=== PATIENT | female | born 2005 | race Caucasian/White ===

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

== ENCOUNTER → 2023-10-02 13:56 | Outpatient (REF) | payer OTHER, SELFPAY ==
--- NOTE | 2023-10-02 14:03 | ECG_ITS ---
Test Reason : hx of palpitations Blood Pressure : / mmHG Vent. Rate : 070 BPM Atrial Rate : 070 BPM P-R Int : 118 ms QRS Dur : 090 ms QT Int : 376 ms P-R-T Axes : 055 077 046 degrees QTc Int : 406 ms Normal sinus rhythm with sinus arrhythmia Normal ECG No previous ECGs available Referred By: Marla Kebede Electronically Signed By:Jeff Marroquin
== END ==
LOC: HO.CARD 13:56
PROVIDERS: PCP Pediatrics; Visit Provider Pediatrics
DX: Z87.898 Personal history of other specified conditions (principal)
CPT/HCPCS: 93005

== ENCOUNTER → 2023-10-02 14:03 | Outpatient (BNV) | payer OTHER, SELFPAY | PROVIDERS: PCP Pediatrics; Visit Provider Internal Medicine Cardiovascular Disease | DX: R00.2 Palpitations (principal) | CPT/HCPCS: 93010 ==

== ENCOUNTER 2024-09-30 21:01 | Emergency (ER) | payer OTHER, SELFPAY ==
--- NOTE | ~2024-09-30 | XR_ITS ---
CLINICAL HISTORY: fall abrasion, pain 3 view left ankle Comparison: None Findings: Bones intact. No dislocations. No significant arthritic change or erosions. No ankle effusion. No radiopaque foreign body. IMPRESSION: 1. No acute fracture or dislocation. This document has been electronically signed by: Emily Ellis MD on 09/30/2024 22:35:24
[2024-09-30 21:11] VITALS: BP 110/78; PULSE 88; RESP 16; TEMP 36.7; O2SAT 99; BMI 31.0
[2024-10-01 00:04] VITALS: BP 120/84; PULSE 86; RESP 16; TEMP 37; O2SAT 99
--- NOTE | 2024-10-01 00:24 | ED.LOWEXIN ---
HPI - Extremity Injury (Lower) General Chief Complaint: Extremity Injury, Lower Stated Complaint: left ankle inj Time Seen by Provider: 09/30/24 23:46 Source: patient Mode of arrival: ambulatory Limitations: no limitations History of Present Illness ED Provider: PARVIN THOMPSON Narrative: 18 yo female otherwise healthy here with c/o walking down a hill twisting L ankle and landing on R knee no other injuries no headstrike. She has pain with ambulation. MD complaint: ankle injury Onset (ago): hour(s) ([employer]) Injury: Left: ankle Type of Injury: inversion Severity: moderate Relieving factors: rest Exacerbating factors: weight bearing, movement and palpation Context: fall Associated symptoms: snap/pop sensation and swelling Other symptoms: none Treatments prior to arrival: cold therapy Related Data Previous Rx's ?Medication ?Instructions ?Recorded cyclobenzaprine 10 mg tablet 10 mg PO TID PRN muscle spasm #20 10/01/24 tabs ibuprofen 600 mg tablet 600 mg PO Q6H PRN pain #30 tabs 10/01/24 Allergies Allergy/AdvReac Type Severity Reaction Status Date / Time No Known Allergies Allergy Unverified 09/30/24 21:14 [No Known Allergies*] Review of Systems Review of Systems: Constitutional : No Fever, No Chills ENT/Mouth : No Ear Pain, No Hoarseness, No sore throat Eyes: No Eye Pain, No Swelling, No Redness, No Foreign Body Cardiovascular : No Chest Pain, No SOB Respiratory : No Cough, No Dyspnea Gastrointestinal : No Nausea, No Vomiting, No Diarrhea, No abdominal Pain Genitourinary : No Dysuria, No Hematuria Musculoskeletal : positive joint pain, No Myalgias, pos Joint Swelling Skin : No Skin lacerations, No rash Neuro : No Weakness, No Numbness, No Loss of Consciousness, No Dizziness, No Headache All other systems reviewed and are negative [facility] Past Medical History Attestation statement: The following information was validated with the patient. Source: old records reviewed Medical History No known health problems Social History Social History (Updated 10/01/24 @ 00:27 by Kim Rosa DO) Patient Tobacco Use Status: Never used Tobacco Physical Exam Vital Signs: Vital Signs: Last Vital Signs Temp 98.0 F 09/30/24 21:11 Pulse 88 09/30/24 21:11 Resp 16 09/30/24 21:11 BP 110/78 09/30/24 21:11 Pulse Ox 99 09/30/24 21:11 O2 Del Method Room Air 09/30/24 21:11 BMI result Body Mass Index 31.0 Appearance: Alert. Oriented X3. No acute distress. Eyes: Pupils equal, round and reactive to light. ENT: Pharynx normal. Neck: Normal inspection. CVS: Pulses normal. Respiratory: No respiratory distress. Abdomen: atraumatic Skin: Skin warm and dry. Normal skin color. Normal skin turgor. Extremities: No lower extremity edema. R knee superficial abrasion no issues with ROM, L ankle - ttp along lateral malleolus and mild swelling distal NV intact no prox fib ttp Neuro: Oriented X 3. No motor deficit. No sensory deficit. CN2-12 intact Medical Decision Making Medical Decision Making MDM Narrative: 18 yo female with no sig PMH here with c/o L ankle pain s/p inversion injury she is otherwise NV intact and has no other injuries at this time. I am going to obtain xray. R knee has abrasion but no concern for fracture given lack of swelling and ROM intact. Differential Diagnosis Differential Diagnoses: The differential diagnosis associated with the presentation includes sprain, strain, fracture Independent Interpretation I performed an independent interpretation of an: Plain X-Ray (no fx) Radiology Impression Discussion of test interpretation with radiology: I have reviewed the radiologist's reading. Independent Historian Clinical information obtained from an independent historian. History obtained from or confirmed by: Friend Prescription Management I considered prescription management with: Pain Medication and Other Procedures Orthopedic Splinting/Casting Injury #1: Side: left Lower Extremity Injury Location: ankle Lower Extremity Immobilizer: AirCast Other Orthopedic Equipment: crutches Discharge Plan Discharge Clinical Impression: Ankle sprain and strain, Abrasion Patient Disposition: Home, Self-Care Instructions: Ankle Sprain (ED), Ankle Stirrup Splint (ED), Abrasion (ED) Additional Instructions: xray negative keep abrasion clean and dry monitor for redness, yellow drainage, swelling return for any worsening symptoms or concerns can call orthopedics if no improvement in 1 week rest ice elevate aircast x 7 days, crutches x 5 days Prescriptions: New cyclobenzaprine 10 mg tablet 10 mg PO TID PRN (Reason: muscle spasm) Qty: 20 0RF ibuprofen 600 mg tablet 600 mg PO Q6H PRN (Reason: pain) Qty: 30 0RF Stand Alone Forms: Work/School Release Print Language: Bahraini
[2024-10-01 00:50] VITALS: BP 120/84; PULSE 86; RESP 16; TEMP 37; O2SAT 99
== END 2024-10-01 00:51 | disposition home or self-care (01) ==
PROVIDERS: Emergency Provider Emergency Medicine; PCP Pediatrics
DX: S93.402A Sprain of unspecified ligament of left ankle, initial encounter (principal); S80.211A Abrasion, right knee, initial encounter; X50.1XXA Overexertion from prolonged static or awkward postures, initial encounter; Y93.01 Activity, walking, marching and hiking; Y92.828 Other wilderness area as the place of occurrence of the external cause; Y99.8 Other external cause status
CPT/HCPCS: 73610; 99283; 99284

== ENCOUNTER → 2024-09-30 21:55 | Outpatient (BNV) | payer OTHER, SELFPAY | PROVIDERS: Visit Provider Radiology Diagnostic Radiology | DX: M25.572 Pain in left ankle and joints of left foot (principal) | CPT/HCPCS: 73610 ==

== ENCOUNTER 2025-01-18 12:51 | Emergency (ER) | payer OTHER, SELFPAY ==
--- NOTE | ~2025-01-18 | XR_ITS ---
CLINICAL HISTORY: cough x 2 months 2 view chest x-ray Comparison: None provided Findings: The lungs are clear. Heart size is normal. No acute fracture. IMPRESSION: 1. No acute findings. This document has been electronically signed by: Cam Erwin MD on 01/18/2025 14:11:05
[2025-01-18 12:52] VITALS: BP 125/96; PULSE 98; RESP 18; TEMP 37; O2SAT 99; BMI 27.7
--- NOTE | 2025-01-18 12:53 | ED_ITS ---
HPI - URI/Sore Throat General Chief Complaint: Upper Respiratory Symptoms Stated Complaint: cough Time Seen by Provider: 01/18/25 14:26 Source: patient Mode of arrival: ambulatory Limitations: no limitations History of Present Illness ED Provider: Steffany Castro PA-C HPI Narrative: Patient seen by myself via RME at first. See course details. Additional information: She denies any fevers, chills, sweats, sob, abd pain, n/v/d. NO travel or rashes. Potentially has seasonal allergies untreated. She is tolerating PO fluids and voiding regularly. Related Data Previous Rx's ?Medication ?Instructions ?Recorded cyclobenzaprine 10 mg tablet 10 mg PO TID PRN muscle s pasm #20 10/01/24 tabs ibuprofen 600 mg tablet 600 mg PO Q6H PRN pain #30 t abs 10/01/24 ipratropium bromide 21 mcg (0.03 2 spray intranasal BI D #30 mL 01/18/25 %) nasal spray Allergies Allergy/AdvReac Type Severity Reaction Status Date / Time No Known Allergies (No Known Allergy Unverified 01/18/25 12:56 Allergies*) Review of Systems Review of Systems: Yes all other systems are reviewed and are negative PMFSH Past Medical History Attestation statement: The following information was validated with the patient. Medical History No known health problems Social History Social History Patient Tobacco Use Status: Never used Tobacco Advance Directives: No Advance Directives Information Provided: Yes Physical Exam Vital Signs: Vital Signs: Last Vital Signs Temp 98.6 F 01/18/25 15:22 Pulse 85 01/18/25 15:22 Resp 18 01/18/25 15:22 BP 125/69 01/18/25 15:22 Pulse Ox 100 01/18/25 15:22 O2 Del Method Room Air 01/18/25 15:22 BMI result Body Mass Index 27.7 General: Appears in no acute distress, appears well nourished body habitus is normal, appears stated age. No septic or ill-appearing. Vitals reviewed normal, PMH/Social and Surgical hx reviewed including allergies and current medications. Head: Normocephalic, no obvious trauma or skin lesions noted. Eyes: EOMI ENMT: moist oral mucosa, uvula midline no trismus, no stridor, nasal turbinates boggy, no erythema, TMs and canal clear, clear PND noted Neck: trachea midline, no lymphadenopathy Cardiovascular: peripheral perfusion normal, Regular heart rate, regular rhythm Respiratory: no respiratory distress, lungs CTAB, no accessory muscle use Abdomen: nondistended, soft Extremities: warm and well profused, moving without difficulty. Psych: Cooperative Neuro: Alert and oriented. Course Course Course Narrative: This is a RME preformed in triage by Steffany Castro PA-C. Date: 01/18/2025, time 12:53 pm. Patient presents with cough x 2 months, productive. Saw pedicatrician, was given inhaler, had negative CXR few weeks ago via PCP. Was still given zpac, prednisone- made no change. Worst at night. Lungs clear, but has b/l chronic serous OM. Not sick or ill appearing, hydrated. Inhaler helps sometimes. No travel or rashes no fevers or chills chronic nasal congestion over the same amount of time. She has done OTC cough medicine in the beginning. No sick contacts at home tolerating p.o. fluids voiding more importantly Work UP: CXR Will defer full ROS and PE to treating provider. Patient will continued to be monitored in the interim. Medical Decision Making Medical Decision Making [facility] Narrative: 19-year-old female here today for evaluation of a cough that she has had intermittently over the past 2 months. Upon arrival to ED she is afebrile and well-appearing. She was noted to have bilateral serous effusions on exam but clear lungs. A chest x-ray was ordered in as she does not appear septic or toxic and given the chronicity of symptoms no further workup was indicated today. Chest x-ray is unremarkable. No posttussive emesis concerning for pertussis however she was already given a Z-Cole with no change as well as prednisone with no change. She is not hypoxic this is not asthma exacerbation. Presentation is most likely see environmental allergens causing the chronic ear effusions leading to postnasal drip and irritative cough. We will advise the use of antihistamines daily and following up with her primary care provider for further surveillance. She was given ED precautions patient demonstrated verbal understanding of the plan and agreed she was discharged home stable Differential Diagnosis Differential Diagnoses: The differential diagnosis associated with the presentation includes Admission/Observation Consideration of admission/observation: Escalation of care including admission/observation considered Patient would have been admitted to the hospital had [his/her/their] work up had any findings where hospital admission was appropriate and [his/her/their] clinical presentation warranted hospital admission. Independent Interpretation I performed an independent interpretation of an: Plain X-Ray Interpretation: No infiltrate no mass Radiology Impression Discussion of test interpretation with radiology: I have reviewed the radiologist's reading. Radiologist Impression: No acute cardiopulmonary disease Tests considered The following testing was considered but not selected: considered viral panel but sxs not acute and would not tire changer aircraft Prescription Management Would have considered antibiotic had patient has no any evidence for bacterial etiology of her symptoms Discharge Plan Discharge Clinical Impression: Chronic cough, Chronic serous OM (otitis media), Chronic vasomotor rhinitis Patient Disposition: Home, Self-Care Instructions: Fluid In The Ear (Serous Otitis Media) (ED), Postnasal Drip (DC) Additional Instructions: You were seen in the emergency department today for cough has been lasting for 2 weeks he already treated with steroids and antibiotics as well as inhaler without any improvement. On physical exam your noted to have bilateral ear effusions which is likely leading to your postnasal drip and cough. Her lungs are clear to auscultation bilaterally but a chest x-ray was ordered just in case which was normal. There is also no evidence of middle or external ear infection strep throat tonsillitis or bronchitis. No pneumonia on x-ray. Serous Otitis Media is NOT an ear infection, instead, it is a build up of fluid behind your ear drum that causes sensation of pressure/blockage and at times can cause dizziness, crackling/popping sounds, and discomfort.? Fluid behind ear drums is a common condition associated with Allergies, Viral upper respiratory infections, sinus inflammation, and many other upper respiratory conditions.? This condition will typically resolve on its own within several days but may take up to 4-6 weeks. Infections may occur during this time as the fluid may develop bacterial growth. It is NOT appropriate to treat fluid behind ear drums with antibiotics without clear signs of infection.? There is no specific treatment for the fluid itself that is stuck behind ear drums and no bacterial infection.? Common things to try to relieve fluid from middle ear are: Decongestant medications, Antihistamines with decongestants (Zyrtec-D twice daily for 5 days), sour hard candies(war heads/lemon drops), Flonase, pinching nose and gently trying to blow out your nose.? Be sure to drink plenty of fluids and electrolytes, especially if taking over the counter meds. Significant sedation and impairment of performance (eg, fine motor skills, driving skills, and reaction times) occur in more than 20 percent of patients. Anticholinergic side effects include dry mouth, diplopia, blurred vision, urinary retention, or vaginal dryness. This is most prominent in Benadryl. Benadryl (Diphenhydramine): Adults and Children 12 years and older: 25 to 50 mg every 4 to 6 hours as needed. Cetirizine (Zyrtec): Adults and Children 12 years and older: 10 to 20 mg twice daily as needed Claritin (loratidine) Adults and children 6 years and older: 10 -20 mg once daily as needed ( twice daily in adults if needed) Yeny (fexofedadine) Adults and Children ages 12 and older: 180 mg daily as needed (adults may be twice a day) Prescriptions: New ipratropium bromide 21 mcg (0.03 %) spray,non-aerosol 2 spray intranasal BID Qty: 30 0RF Rx Instructions: administer into each nostril No Action cyclobenzaprine 10 mg tablet 10 mg PO TID PRN (Reason: muscle spasm) Qty: 20 0RF ibuprofen 600 mg tablet 600 mg PO Q6H PRN (Reason: pain) Qty: 30 0RF Referrals: [facility] [place]Provider Group, Pulmonology] Referral Note: chronic cough Interventions: ED Discharge Assessment Last Done: 01/18/25 15:22 Discharge Date/Time: 01/18/25 15:23 Print Language: Irish
[2025-01-18 15:00] VITALS: BP 125/69; PULSE 85; RESP 18; TEMP 37; O2SAT 100
[2025-01-18 15:22] VITALS: BP 125/69; PULSE 85; RESP 18; TEMP 37; O2SAT 100
== END 2025-01-18 15:23 | disposition home or self-care (01) ==
LOC: HO.ED 15:16
PROVIDERS: Emergency Provider Emergency Medicine
DX: R05.9 Cough, unspecified (principal); H65.20 Chronic serous otitis media, unspecified ear; J30.0 Vasomotor rhinitis
CPT/HCPCS: 71046; 99282; 99283

== ENCOUNTER → 2025-01-18 12:59 | Outpatient (BNV) | payer OTHER, SELFPAY | PROVIDERS: Emergency Provider Emergency Medicine; Visit Provider Radiology Diagnostic Radiology | DX: R05.9 Cough, unspecified (principal) | CPT/HCPCS: 71046 ==

== ENCOUNTER 2025-03-21 15:31 | Outpatient (AMB) | payer OTHER, SELFPAY ==
[2025-03-21 15:33] VITALS: BP 100/72; PULSE 73; O2SAT 98; BMI 27.7
--- NOTE | 2025-03-21 15:33 | MHC.OFFVIS ---
Vital Signs 03/21/25 15:33 Height 5 ft 6 in Weight 171 lb 8 oz BMI 27.7 BP 100/72 Blood Pressure Location Lt brachial Position Sitting Pulse 73 Pulse Source Pulse Oximeter Pulse Oximetry (%) 98 Oxygen Delivery Method Room Air Intake Visit Reasons: Cough Allergies No Known Allergies (No Known Allergies*) Allergy (Unverified 03/21/25 15:36) HPI HPI Cough: Details: Renzo is a pleasant 19-year-old female, never smoker, with no significant past medical history. She was referred by PCP for persistent cough and question of asthma. Patient presenting with a persistent cough with green mucus production and associated respiratory symptoms. The cough began at the end of November and has been accompanied by dyspnea and chest tightness. The patient reports that the mucus is green, and she has experienced nasal congestion and occasional wheezing.She reports anosmia and ageusia, which have persisted despite negative COVID-19 tests. The patient has tried various treatments, including azithromycin, steroids, and [id number] cough medications, without significant improvement. A chest x-ray was performed, which did not reveal any abnormalities. The patient has a family history of asthma but has not been diagnosed with it herself. The patient has been to the emergency room multiple times over the past three years for respiratory issues, including recent visits to the ER in [place] and [place]. She has been prescribed albuterol, which she feels exacerbates her symptoms. The patient has also been exposed to potential allergens, including three Huskies at home and cleaning chemicals at work, working as a MA. [facility] Medical History No known health problems Social History Patient Tobacco Use Status: Never used Tobacco Review of Systems Const Denies chills, Denies excessive sweating, Denies fever(s), Denies headache(s) and Denies night sweats Eyes Denies dry eyes, Denies irritation and Denies itchy eyes ENT Reports Normal hearing present, Denies headache(s), Denies post nasal drip and Denies sore throat Card Denies chest pain, Denies chest pain at rest, Denies chest pain with activity, Denies claudication, Denies leg edema, Denies orthopnea and Denies paroxysmal nocturnal dyspnea Resp Denies pain on inspiration, Denies pain with cough and Denies stridor Musc Denies myalgias Neuro Reports Normal hearing present and Denies headache(s) Endo Denies excessive sweating Latrell/Lymph Denies lymphadenopathy Aller/Immun Denies itchy eyes and Denies seasonal rhinorrhea Physical Exam Vital Signs: Last Vital Signs Pulse 73 03/21/25 15:33 BP 100/72 03/21/25 15:33 Pulse Ox 98 03/21/25 15:33 Oxygen Delivery Method Room Air 03/21/25 15:33 BMI result Body Mass Index 27.7 Const General: cooperative, healthy appearing, comfortable, no acute distress, well developed and alert Orientation/consciousness: patient oriented x3 Limitations: no limitations HEENT Head: Yes normal to inspection, Yes normocephalic and Yes atraumatic Ears: hearing grossly normal bilaterally and external ears normal Eyes General: appearance normal, both eyes and all related structures Eyelids: Yes eyelids normal Sclerae: sclerae normal EOM: EOMs intact bilaterally Neck Neck: Yes normal visual inspection and Yes no lymphadenopathy Lymphatic: no lymphadenopathy noted Chest Chest palpation & inspection: normal inspection of the chest Resp Effort & Inspection: normal respiratory effort, able to speak in complete sentences, no audible wheezes, no stridor, not tachypneic, no tripod positioning and no use of accessory muscles Auscultation: rhonchi and wheezes Cardio Jugular venous distension: no JVD Rate: regular rate Rhythm: regular rhythm Skin Other: warm, dry General skin exam: no rashes or lesions noted Neuro General: patient oriented x3 Cranial nerves: Yes Normal hearing present Cognition (Neuro): normal cognition Gait exam (Neuro): Normal gait present Extrem General: Yes normal to inspection, Yes capillary refill normal, Yes no clubbing, cyanosis or edema and Yes no pedal edema Psych Appearance: grossly normal and well kempt Speech and movement: Normal speech and movement present and Clear speech present Affect: normal affect Attitude: cooperative Thought process: Normal thought process present Thought content: Normal thought content present Insight: Good insight present (Psych) Judgement: Good judgement present (Psych) Assessment & Plan Assessment & Plan (1) Cough: Code(s): R05.9 - Cough, unspecified Category: Medical (2) Dyspnea: Code(s): R06.00 - Dyspnea, unspecified Category: Medical (3) Environmental allergies: Code(s): Z91.09 - Other allergy status, other than to drugs and biological substances Category: Medical Plan Renzo presents with chronic cough that has not responded to azithromycin and prednisone. Side effects reviewed. She continues with productive cough with green sputum and significant rhonchi and wheezing on exam. Will treat bronchitic symptoms with Augmentin and Prednisone. She is aware to call if symptoms do not improve. Will send for PFT evaluate for asthma and discussed the possibility of a CT scan if symptoms persist. Advised the patient to try Zyrtec for nasal congestion and will send for RAST to assess for an allergic component. All questions were answered and patient is in agreement of plan. Will follow up in 4 weeks or sooner if needed. Orders: Orders PFT pulmonary function test Today R05.9 - Cough, unspecified, R06.00 - Dyspnea, unspecified Resp Allergy Profile Region I 03/21/25 Z91.09 - Other allergy status, other than to drugs and biological substances Immunoglobulin E 03/21/25 Z91.09 - Other allergy status, other than to drugs and biological substances Complete Blood Count Auto Diff 03/21/25 Z91.09 - Other allergy status, other than to drugs and biological substances Medications: New prednisone 20 mg x 5 days followed by 10 mg x 5 days 10 mg PO DIRECTED 15 tabs 0RF amoxicillin-pot clavulanate 875-125 mg 1 tab PO Q12H 20 tabs 0RF Discontinued cyclobenzaprine Discontinued Reason: Patient Completed Course 10 mg PO TID PRN 20 tabs 0RF muscle spasm ibuprofen Discontinued Reason: Patient Completed Course 600 mg PO Q6H PRN 30 tabs 0RF pain ipratropium bromide administer into each nostril Discontinued Reason: Patient Completed Course 2 sprays intranasal BID 30 mL 0RF Coding Level of Care Code New Pt Level 4 (88895) Diagnoses Cough R05.9 Dyspnea R06.00 Environmental allergies Z91.09
--- OUTSIDE RECORDS SUMMARY | 2025-03-21 17:42 | XMS_ITS | Clinical Summary ---
Author Organization [facility] Address [address] [place] [address] Phone Care Team Providers Care Lockstitch Machine Operator Name Role Phone Unavailable Primary Care Provider Unavailabl e Allergies No known active allergies Medications Ventolin HFA 108 (90 Base) MCG/ACT inhaler INHALE 1 PUFF 4 TIMES A DAY 12/20/2024 Active ergocalciferol 1.25 MG (23372 UT) capsuleIndicati ons:Vitamin D deficiency Take 1 capsule (1.25 mg total) by mouth once a week. 12 capsule 01/02/2025 Active Active Problems Problem Noted Date Diagnosed Date Omphalitis 10/17/2023 Assessment & Plan (10/17/2023 2:50 PM EDT): Topical antibiotic mupirocin apply with q-tip TID for 5 days If not improving or if better but then worsens let us know Supportive care reviewed Refused influenza vaccine 03/17/2021 Overview (06/17/2021): 03/17/2021, 06/17/2021 Assessment & Plan (06/17/2021 2:37 PM EST): Strongly encouraged the influenza vaccine to help prevent influenza personally, & in the community, especially in light of concurrent coronavirus pandemic Family/patient still declined today They will call if they decide to get it Assessment & Plan (03/17/2021 2:19 PM EDT): Strongly encouraged the influenza vaccine to help prevent influenza personally, & in the community, especially in light of concurrent coronavirus pandemic Family/patient still declined today They will call if they decide to get it Myopia of both eyes 02/20/2014 Overview (03/10/2020): Persistant pupillary membrane & Myopia. Dr Angel - glasses. Mom says Dr Angel told family that Pt will need surgery at 20 years of age. 03/2020: patient says [facility] told her she does not need surgery But can get it if she wants Assessment & Plan (06/17/2021 2:03 PM EST): Has contacts. Sees eye doctor regularly Assessment & Plan (03/10/2020 3:38 PM EDT): Seen last month. Got new contacts Assessment & Plan (04/11/2017 5:14 PM EDT): Followed by Dr Angel. 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 Renzo struggles in school. Gave info on school advocate Resolved Problems Problem Noted Date Diagnosed Date Resolved Date Personal history of COVID-19 06/25/2021 10/17/2023 Overview (06/25/2021): Tested positive 06/23/21, mild symptoms. Disruptive behavior 03/12/2015 03/10/20 20 Overview (10/09/2017): Refuses to see therapist Assessment & Plan (03/10/2020 3:30 PM EDT): No further issues at school Does not want to see therapist Assessment & Plan (04/11/2017 5:13 PM EDT): So far doing better this year but struggled last year. Renzo refuses to see therapist Precocious sexual development 02/17/2014 08/02/2018 Overview (10/09/2017): Bone age normal 2012. DHEAS, 17-OHP, Testosterone normal 2012. Sister's Menarche at 8 years of age Bone age normal 2012. DHEAS, 17-OHP, Testosterone normal 2012. Sister's Menarche at 8 years of age Encounters Date Type Department Care Team Description 01/09/2025 Telephone [facility] [address] [place] [address] Terra Coffey MD 19 Letter 01/02/2025 Results Follow-Up [facility] [address] [place] [address] Esther Carpenter NP 01/01/2025 3:30 PM EDT Office Visit [address] [address] Esther Carpenter NP Well adult exam (Primary Dx); Encounter for screening examination for sexually transmitted disease; BMI 31.0-31.9,adult; Dietary counseling and surveillance; Exercise counseling; Chronic cough; Screening for iron deficiency anemia; Screening cholesterol level from Last 3 Months Immunizations Immunization Administration Dates Next Due DTaP / Hep B / IPV 05/26/2004,03/30/2004 DTaP 5 12/05/2007,05/31/2005,01/27/2004 H1N1 06/16/2009 HPV Vaccine 9 Valent 03/21/2016,03/12/2015 Hep A, ped/adol 02/17/2014,02/16/2011 Hep B, ped/adol 2003 Hib (HbOC) 03/01/2005, 4,03/30/2004,01/26 IPV 12/05/2007,01/27/2004 Influenza, injectable, quadr ivalent, preservative free 05/26/2020,08/02/2018,04/11/2017,03/21,03/12/2015 Influenza, injectable, trivalent 07/25/2006,06/09/2006 MMR 12/05/2007,2004 Meningococcal Conj (Menactra) MCV4P 05/26/2020,0 03/12/2015 PPD Test 10/18/2023 Pneumococcal Conjugate 03/01/2005,2003,03/30/2004,01/26 Tdap 03/12/2015 Varicella 12/05/2007,2004 Family History Medical History Relation Name Comments ADD / ADHD Brother 1 Easton Dumont No Known Problems Brother 2 Andrew Dumont Diabetes Father Reuben Dumont ADD / ADHD Mother Zara St Asthma Mother Zara St Depression Mother Zara St Hypertension Mother Zara St Relation Name Status Comments Brother 1 Easton Dumont Alive Brother 2 Andrew Dumont Alive Father Reuben Dumont Alive Maternal Grandfather Materna l grandfather: Diabetes mellitus Maternal Grandmother Materna l aunt: Diabetes mellitus, Asthma Mother Z[address] St Alive Other Family history of Deafness, No family history of Thrombophilia, Family history of Hyperlipidemia, Family history of Hyperlipidemia, No family history of ADD/ADHD, No family history of Dental caries, No family history of CVA (Stroke), Family history of Diabetes mellitus, Family history of Hypertension Sister Ivana Dumont Alive Social History Tobacco Use Types Packs/Day Years Used Date Smoking Tobacco: Never Smokeless Tobacco: Current Tobacco Cessation:Ready to Q uit: No; Counseling Given: Yes Alcohol Use Standard Drinks/Week Comments Yes 0 (1 standard drink = 0.6 oz pur e alcohol) Rare alcohol use; socially. Hunger/Food Answer Date Recorded In the last 12 months, did y ou or your family ever eat less than you felt you should because there wasn't enough money for food? No 09/28/2023 Stable Housing Answer Date Recorded Are you worried that in the next 2 months you may not have stable housing? No 09/28/2023 Transportation Concerns Answer Date Rec orded In the last 12 months, have you or your family ever had to go without healthcare because you didn't have a way to get there? No 09/28/2023 Hazards in Home Answer Date Recorded Think about the place you li ve. Do you have problems with any of the following? Pests (mice or roaches), mold, no/not working smoke detectors, water leaks, no window guards. No 2023 Financing Utilities Answer Date Recorde d In the last 12 months, has t he electric, gas, oil, or water company threatened to shut off your services in your home? No 09/28/2023 Safety at Home Answer Date Recorded Are you or your family worried about feeling saf e in your home? No 09/28/2023 Outside Support Answer Date Recorded Do you feel that you need mo re support from other people or programs to help you care for yourself or your family? No 09/28/2023 Understanding Health Concerns Answer Da te Recorded Do you need help understandi ng your or your child's healthcare needs (diagnosis, medications, plan, etc.)? No 09/28/2023 Financing Health Concerns Answer Date R ecorded In the last 12 months, was t here a time when your child needed to see a doctor or get medications or supplies but could not because of cost? No 09/28/2023 Missing School or Work Answer Date Ace rded Did you or your child miss s chool or work because of a health problem that could have been avoided? No 09/28/2023 Comments No Sex and Gender Information Value Date Recorded Sex Assigned at Not on file Legal Sex Female 5:02 PM EDT Gender Identity Female 03/10/2020 9:49 AM EDT Sexual Orientation Straight 06/17/2021 2: 39 PM EST Last Filed Vital Signs Vital Sign Reading Time Taken Comments Blood Pressure 104/62 01/01/2025 3:36 PM EDT Pulse 84 01/01/2025 3:36 PM EDT Temperature 36.8 C (98.2 F) 09/13/2024 3:16 PM EST Respiratory Rate - - Oxygen Saturation - - Inhaled Oxygen Concentration - - Weight 78.6 kg (173 lb 3.2 oz) 01/01/2025 3:36 P M EDT Height 159 cm (5' 2.6 ) 01/01/2025 3:36 PM EDT Body Mass Index 31.08 01/01/2025 3:36 PM EDT Plan of Treatment Health Maintenance Due Date Last Done Comments Men B Vaccine (1 of 2 - Standard) 2019 Influenza Vaccines (#1) 2025 05/26/20 20, 08/02/2018, 04/11/2017, Additional history exists COVID-19 Vaccine (1 - 2023-2 5 season) 2025 DTaP,Tdap,and Td Vaccines (7 - Td or Tdap) 03/12/2025 03/12/2015, 12/05/2007, 05/31/2005, Additional history exists Hepatitis B Vaccines Completed 05/26/2004, 03/30/2004, 2003 HIB Vaccines Completed 03/01/2005, 05/10, 03/30/2004, Additional history exists Pneumococcal Vaccine Completed 03/01/2005, 05/26/2004, 03/30/2004, Additional history exists IPV Vaccines Completed 12/05/2007, 05/10, 03/30/2004, Additional history exists MMR Vaccines Completed 12/05/2007, 2004 Varicella Vaccines Completed 12/05/2007, 2004 Hepatitis A Vaccines Completed 02/17/2014, 02/17/20 11 HPV Vaccines Completed 03/21/2016, 03/12/2015 Meningococcal Vaccine Completed 05/26/2020, 015 Procedures * Due to [place] state law, this organization might not be sharing sensitive test results. Procedure Name Priority Date/Time Associated Diagnosis Comments XR CHEST 2 VW Routine 01/01/2025 5:53 PM EDT Chronic cough CHLAMYDIA AND GONORRHEA, AMPLIFIED Routine 01/01/2025 4:21 PM EDT Encounter for screening examination for sexually transmitted disease VITAMIN D 25 OH TOTAL Routine 01/01/2025 4:19 PM EDT BMI 31.0-31.9,adult CBC Routine 01/01/2025 4:19 PM EDT Screening for iron deficiency anemia HEMOGLOBIN A1C Routine 01/01/2025 4:19 PM EDT BMI 31.0-31.9,adult NON-HDL CHOLESTEROL NON-FASTING PROFILE Routine 01/01/2025 4:19 PM EDT Screening cholesterol level BRIEF BEHAVIORAL ASSESSMENT - NORMAL(PSC,PHQ9,VAND ERBILT,ETC) Routine 01/01/2025 3:40 PM EDT Well adult exam from Last 3 Months Results * Due to [place] state law, this organization might not be sharing sensitive test results. * X-ray chest 2 views (01/01/2025 5:53 PM EDT) Anatomical Region Laterality Modality Body Radiographic Jennifer ging 01/01/2025 5:53 PM EDT Narrative 01/02/2025 7:38 AM EDT PA and lateral chest dated January 01, 2025. No prior studies are available. HISTORY: Pain. FINDINGS: The cardiac silhouette is within normal limits for size. Hilar and mediastinal structures are unremarkable. No airspace infiltrate or pleural effusion is identified. Visualized osseous structures are unremarkable. IMPRESSION: No evidence of acute pulmonary disease. Examination [address]. Thank you for allowing me to participate in the care of this patient. WSN: [id number] Ordering Physician: Esther Carpenter Dictated By: Mando Ruby MD Dictated Date/Time: 01/02/25 7:38 am Reviewed By: Mando Ruby MD Signed By: Mando Ruby MD Signed Date/Time: 01/02/25 7:38 am Transcribed By: JACKIE Transcribed Date/Time: 01/02/25 7:38 am Esther Carpenter CLINIC SPECIALIST IMG XR PROCEDURES Final Result * Chlamydia and Gonorrhoea, Amplified (Urine) (01/01/2025 4:21 PM EDT) C trach LILLIAN Negative Negative [facility] N gonorrhoeae LILLIAN Negative Negative [facility] Urine (Urine, Random (not clean void)) 01/01/2025 4:21 PM EDT 01/01/2025 Comment:UR Narrative [facility] - 01/02/2025 5:05 PM EDT Performed at: - [facility] [address], [address], [place], [place] [id number] Handyperson: Preston Enamorado MD, Phone: [phone] Esther Carpenter NP LAB MICROBIOLOGY - GENERAL ORD ERABLES Final Result Performing Organization Address [facility] de Phone Number [facility] [address] [place] [address] * Non-HDL Cholesterol Non-Fasting Profile (01/01/2025 4:19 PM EDT) [facility] Cholesterol, Total 142 100 - 199 mg/dL [facility] HDL 57 >39 mg/dL [facility] Non-HDL Cholesterol 85 0 - 129 mg/dL [facility] Comments Comment [facility] Comment: If patient is <20 years old, or no age was provided, Familial Hypercholesterolemia should be suspected when fasting LDL cholesterol is above 159 mg/dL or non-HDL cholesterol is above 189 mg/dL. If patient is 20 years or greater, Familial Hypercholesterolemia should be suspected when fasting LDL cholesterol is above 189 mg/dL or non-HDL cholesterol is above 219 mg/dL. A family history of high cholesterol and heart disease in 1st degree relatives should be collected. J Clin Lipidol 2011;5:133-140. 01/01/2025 4:19 PM EDT 01/01/2025 Narrative [facility] - 01/02/2025 4:05 AM EDT Performed at: - [facility] [id number] Handyperson: Marleni Hutson MD, Phone: [phone] Performed at: - [facility] [address], [address], [place] [id number] Handyperson: Preston Enamorado MD, Phone: [phone] Esther Carpenter NP LAB BLOOD ORDERABLES Final Res ult Performing Organization Address [facility] Co de Phone Number [facility] [address] [place] [address] * (ABNORMAL) Vitamin D 25 OH Total (01/01/2025 4:19 PM EDT) Vitamin D, 25-Hydroxy 16.1(L) 30.0 - 100.0 ng/mL [facility] Comment: Vitamin D deficiency has been defined by the [place] of Medicine and an Endocrine Society practice guideline as a level of serum 25-OH vitamin D less than 20 ng/mL (1,2). The Endocrine Society went on to further define vitamin D insufficiency as a level between 21 and 29 ng/mL (2). 1. IOM ([place] of Medicine). 2010. Dietary reference intakes for calcium and D. [place]: The National Academies Press. 2. Mike MF, Alona SANTO, Chilango AN, et al. Evaluation, treatment, and prevention of vitamin D deficiency: an Endocrine Society clinical practice guideline. JCEM. 2010; 96(7):1911-30. Blood 01/01/2025 4:19 PM EDT 01/01/2025 Narrative [facility] - 01/02/2025 5:05 AM EDT Performed at: 01 - [facility] [id number] Handyperson: Marleni Hutson MD, Phone: [phone] Esther Carpenter NP LAB BLOOD ORDERABLES Final Res ult Performing Organization Address City/State/[facility] Co de Phone Number [facility] [address] [place] [address] * (ABNORMAL) CBC (01/01/2025 4:19 PM EDT) WBC 11.2(H) 3.4 - 10.8 x10E3/uL [facility] RBC 4.68 3.77 - 5.28 x10E6/uL [facility] HGB 13.5 11.1 - 15.9 g/dL [facility] HCT 42.3 34.0 - 46.6 % [facility] MCV 90 79 - 97 fL [facility] MCH 28.8 26.6 - 33.0 pg [facility] MCHC 31.9 31.5 - 35.7 g/dL [facility] RDW 13.1 11.7 - 15.4 % [facility] Platelets in Blood, Automated Count 249 150 - 450 x10E3/uL [facility] Blood 01/01/2025 4:19 PM EDT 01/01/2025 Narrative [facility] - 01/02/2025 8:06 AM EDT Performed at: [facility] [id number] Handyperson: Marleni Hutson MD, Phone: [phone] Esther Carpenter NP LAB BLOOD ORDERABLES Final Res ult Performing Organization Address [facility] Co de Phone Number [facility] [address] [place] [address] * Hemoglobin A1c (01/01/2025 4:19 PM EDT) [facility] Hemoglobin A1C 5.3 4.8 - 5.6 % [facility] Comment: Prediabetes: 5.7 - 6.4 Diabetes: >6.4 Glycemic control for adults with diabetes: <7.0 Blood 01/01/2025 4:19 PM EDT 01/01/2025 Narrative [facility] - 01/02/2025 8:06 AM EDT Performed at: [facility] [id number] Handyperson: Marleni Hutson MD, Phone: [phone] Esther Carpenter NP LAB BLOOD ORDERABLES Final Res ult Performing Organization Address City/[facility]/ZIP Co de Phone Number [facility] [address] [place] [address] from Last 3 Months
--- OUTSIDE RECORDS SUMMARY | 2025-03-21 17:42 | XMS_ITS | Encounter Summary ---
Author Organization [facility] Address [address] [place] [address] Phone Care Team Providers Care Client Integration Manager Name Role Phone Provider, Phillip SANCHES Primary Care Provider [phone] Encounter Details Date Type Department Care Team (Late st Contact Info) Description 01/25/2013 Documentation [facility] Family Medicine [address] [place] [address] Family Medicine, Physician [address] [place], [place] [id number] Social History Tobacco Use Types Packs/Day Years Used Date Smoking Tobacco: Never Assessed Comments Unknown Sex and Gender Information Value Date Recorded Sex Assigned at Not on file Legal Sex Female 5:02 PM EDT Gender Identity Female 03/10/2020 9:49 AM EDT Sexual Orientation Straight 06/17/2021 2: 39 PM EST documented as of this encounter Plan of Treatment Not on file documented as of this encounter Visit Diagnoses Not on filedocumented in this encounter Care Teams Client Integration Manager Relationship Specialty Start Date End Date Provider, MD Phillip [address] [place] [phone] PCP - General Pediatrics 01/09/25 01/22/25 documented as of this encounter
--- OUTSIDE RECORDS SUMMARY | 2025-03-21 17:42 | XMS_ITS | Encounter Summary ---
Author Organization [facility] Address [address] [place] [address] Phone Care Team Providers Care Bench Grinder Name Role Phone Provider, Phillip SANCHES Primary Care Provider [phone] Encounter Details Date Type Department Care Team (Late st Contact Info) Description 02/23/2017 Conversion Encounter [facility] [address] [place] [address] Social History Tobacco Use Types Packs/Day Years [...] on filedocumented in this encounter Care Teams Bench Grinder Relationship Specialty Start Date End Date Provider, MD Phillip [address] [place] [id number] PCP - General Pediatrics 01/09/25 01/22/25 documented as of this encounter
--- OUTSIDE RECORDS SUMMARY | 2025-03-21 17:42 | XMS_ITS | Encounter Summary ---
Author Organization [facility] Address [address] [place] [address] Phone Care Team Providers Care Geospatial Developer Name Role Phone Provider, Phillip SANCHES Primary Care Provider [phone] Encounter Details Date Type Department Care Team (Late st Contact Info) Description 11/27/2009 Documentation [facility] [place] [address] [place] [address] Family Medicine, Physician [address] [place] [phone] Social History Tobacco Use Types Packs/Day Years [...] on filedocumented in this encounter Care Teams Geospatial Developer Relationship Specialty Start Date End Date Provider, MD Phillip [address] [place] [phone] PCP - General Pediatrics 01/09/25 01/22/25 documented as of this encounter
== END 2025-03-21 16:03 | disposition home or self-care (01) ==
LOC: HO.HPSW 15:32
PROVIDERS: PCP Nurse Practitioner Pediatrics; Referring Provider Physician Assistant Medical; Visit Provider Nurse Practitioner Family
DX: R05.9 Cough, unspecified (principal); R06.00 Dyspnea, unspecified; Z91.09 Other allergy status, other than to drugs and biological substances
CPT/HCPCS: 99204

== ENCOUNTER → 2025-03-21 15:31 | Outpatient (BNVA) | payer OTHER, SELFPAY | PROVIDERS: PCP Nurse Practitioner Pediatrics; Referring Provider Physician Assistant Medical; Visit Provider Nurse Practitioner Family | DX: R05.9 Cough, unspecified (principal); R06.00 Dyspnea, unspecified; Z91.09 Other allergy status, other than to drugs and biological substances | CPT/HCPCS: 99202 ==

== ENCOUNTER 2025-03-24 09:03 | Outpatient (REF) | payer OTHER, SELFPAY ==
[2025-03-24 09:14] LABS: MANUAL DIFF FLAG NO
[2025-03-24 09:41] LABS: Hematocrit 41.3 % (37.0-47.0); Hemoglobin 13.8 g/dl (12.0-16.0); Imm Gran Abs Auto 0.03 X10*3/uL (0.00-0.03); Imm Gran Pct Auto 0.3 % (0.0-0.4); Lymphocytes Absolute Auto 1.6 X10*3/uL (1.2-4.9); Mean Corpuscular HGB Conc 33.4 g/dl (31.0-35.0); Mean Corpuscular Hemoglobin 28.4 pg (27.0-33.0); Mean Corpuscular Volume 85.0 fL (80.0-98.0); NRBC Abs Auto 0.000 X10*3/uL (0.0-0.012); NRBC Pct Auto 0.0 /100WBC (0.0-0.2); Platelet Count 274 X10*3/uL (160-400); Red Blood Count 4.86 X10*6/uL (4.20-5.50); White Blood Count 9.9 X10*3/uL (4.8-10.8)
--- OUTSIDE RECORDS SUMMARY | 2025-03-24 10:35 | XMS_ITS | Encounter Summary ---
Author Organization [facility] Address [address] [place] [address] Phone Care Team Providers Care Tire Shop Manager Name Role Phone Provider, Phillip SANCHES Primary Care Provider [phone] Encounter Details Date Type Department Care Team (Late st Contact Info) Description 02/23/2017 Conversion Encounter [facility] [place] [address] [place] [address] Social History Tobacco Use Types Packs/Day Years [...] on filedocumented in this encounter Care Teams Tire Shop Manager Relationship Specialty Start Date End Date Provider, MD Phillip [address] [place] [phone] PCP - General Pediatrics 01/09/25 01/22/25 documented as of this encounter
--- OUTSIDE RECORDS SUMMARY | 2025-03-24 10:35 | XMS_ITS | Encounter Summary ---
Author Organization [facility] Address [address] [place] [address] Phone Care Team Providers Care Marine Service Manager Name Role Phone Provider, Phillip SANCHES Primary Care Provider [phone] Encounter Details Date Type Department Care Team (Late st Contact Info) Description 11/27/2009 [place] [facility] [place] [address] [place] [address] Family Medicine, Physician [address] [place] [phone] Social History Tobacco Use Types Packs/Day Years [...] on filedocumented in this encounter Care Teams Marine Service Manager Relationship Specialty Start Date End Date Provider, MD Phillip [address] [place] [phone] PCP - General Pediatrics 01/09/25 01/22/25 documented as of this encounter
--- OUTSIDE RECORDS SUMMARY | 2025-03-24 10:35 | XMS_ITS | Clinical Summary ---
Author Organization [facility] Address [address] [place] [address] Phone Care Team Providers Care Service Control Operator Name Role Phone Unavailable Primary Care Provider Unavailabl e Allergies No known active allergies Medications Ventolin HFA 108 (90 Base) MCG/ACT inhaler INHALE 1 PUFF 4 TIMES A DAY 12/20/2024 Active ergocalciferol 1.25 MG (29572 UT) capsuleIndicati ons:Vitamin D deficiency Take 1 [...] years of age. 03/2020: patient says new [facility] told her she does [...] Type Department Care Team Description 01/09/2025 Telephone [facility] [address] [place] [address] Terra Coffey MD 21 Letter 01/02/2025 Results Follow-Up [facility] [address] [place] [address] Esther Carpenter NP 01/01/2025 3:30 PM EDT Office Visit [address] [address] Esther Carpenter NP Well adult exam (Primary [...] / ADHD Mother Zara St Asthma Mother Zraa St Depression Mother Zara St Hypertension Mother [...] Completed 05/26/2020, 015 Procedures * Due to [place] state law, this organization might not be [...] Last 3 Months Results * Due to [place] state law, this organization might not be [...] No evidence of acute pulmonary disease. Examination 64842. Thank you for allowing me to participate in the care of this patient. WSN: [id number] Ordering Physician: Esther Carpenter Dictated By: Mando Ruby MD Dictated Date/Time: 01/02/25 7:38 am Reviewed By: Mando Ruby MD Signed By: Mando Ruby MD Signed Date/Time: 01/02/25 7:38 am Transcribed By: JACKIE Transcribed Date/Time: 01/02/25 7:38 am Esther Carpenter PACKING MACHINE TENDER IMG XR PROCEDURES Final Result * Chlamydia and Gonorrhoea, Amplified (Urine) (01/01/2025 4:21 PM EDT) C trach LILLIAN Negative Negative [facility] N gonorrhoeae LILLIAN Negative Negative [facility] Urine (Urine, Random (not clean void)) 01/01/2025 4:21 PM EDT 01/01/2025 Comment:UR Narrative [facility] - 01/02/2025 5:05 PM EDT Performed at: - [facility] [address], [address], [place], [place] [id number] Syrup Mixer Assistant: Preston Enamorado MD, Phone: [phone] Esther Carpenter NP LAB MICROBIOLOGY - GENERAL ORD ERABLES Final Result Performing Organization Address [facility] de Phone Number [facility] [address] [place] [address] * Non-HDL Cholesterol Non-Fasting Profile (01/01/2025 4:19 PM EDT) [facility] Cholesterol, Total 142 100 - 199 mg/dL [...] 01/02/2025 4:05 AM EDT Performed at: - [facility] [id number] Syrup Mixer Assistant: Marleni Hutson MD, Phone: [phone] Performed at: - [facility] [address], [address], [place] [id number] Syrup Mixer Assistant: Preston Enamorado MD, Phone: [phone] Esther Carpenter NP LAB BLOOD ORDERABLES Final Res ult Performing Organization Address [facility] Co de Phone Number [facility] [address] [place] [address] * (ABNORMAL) Vitamin D 25 OH Total (01/01/2025 4:19 PM EDT) Vitamin D, 25-Hydroxy 16.1(L) 30.0 - 100.0 ng/mL [facility] Comment: Vitamin D deficiency has been defined by the [place] of Medicine and an Endocrine Society practice guideline as a level of serum 25-OH vitamin D less than 20 ng/mL (1,2). The Endocrine Society went on to further define vitamin D insufficiency as a level between 21 and 29 ng/mL (2). 1. IOM ([place] of Medicine). 2010. Dietary reference intakes for calcium and D. [place]: The National Academies Press. 2. Mike MF, Alona SANTO, Chilango AN, et al. Evaluation, treatment, and prevention of vitamin D deficiency: an Endocrine Society clinical practice guideline. JCEM. 2010; 96(7):1911-30. Blood 01/01/2025 4:19 PM EDT 01/01/2025 Narrative [facility] - 01/02/2025 5:05 AM EDT Performed at: 01 - [facility] [id number] Syrup Mixer Assistant: Marleni Hutson MD, Phone: [phone] Esther Carpenter NP LAB BLOOD ORDERABLES Final Res ult Performing Organization Address City/State/[facility] Co de Phone Number [facility] [address] [place] [address] * (ABNORMAL) CBC (01/01/2025 4:19 PM EDT) [...] - 01/02/2025 8:06 AM EDT Performed at: [facility] [id number] Syrup Mixer Assistant: Marleni Hutson MD, Phone: [phone] Esther Carpenter NP LAB BLOOD ORDERABLES Final Res ult Performing Organization Address [facility] Co de Phone Number [facility] [address] [place] [address] * Hemoglobin A1c (01/01/2025 4:19 PM EDT) [facility] Hemoglobin A1C 5.3 4.8 - 5.6 % [facility] Comment: Prediabetes: 5.7 - 6.4 Diabetes: >6.4 Glycemic control for adults with diabetes: <7.0 Blood 01/01/2025 4:19 PM EDT 01/01/2025 Narrative [facility] - 01/02/2025 8:06 AM EDT Performed at: [facility] [id number] Syrup Mixer Assistant: Marleni Hutson MD, Phone: [phone] Esther Carpenter NP LAB BLOOD ORDERABLES Final Res ult Performing Organization Address City/[facility]/ZIP Co de Phone Number [facility] [address] [place] [address] from Last 3 Months
--- OUTSIDE RECORDS SUMMARY | 2025-03-24 10:35 | XMS_ITS | Encounter Summary ---
Author Organization [facility] Address [address] [place] [address] Phone Care Team Providers Care Mixing House Operator Name Role Phone Provider, Phillip SANCHES Primary Care Provider [phone] Encounter Details Date Type Department Care Team (Late st Contact Info) Description 01/25/2013 Documentation [facility] [place] Family Medicine [address] [place] [address] Family Medicine, Physician [address] [place], [place] [address] Social History Tobacco Use Types Packs/Day Years [...] on filedocumented in this encounter Care Teams Mixing House Operator Relationship Specialty Start Date End Date Provider, MD Phillip [address] [place] [phone] PCP - General Pediatrics 01/09/25 01/22/25 documented as of this encounter
[2025-03-27 20:23] LABS: Class Alternaria alternata 0; Class Aspergillus fumigatus 0; Class Bermuda Grass 0; Class Birch 0; Class Cat Dander 0; Class Cladosporium herbarum 0; Class Cockroach 0; Class Common Ragweed 0; Class Cottonwood 0; Class Derm. pterony 0; Class Dermatophagoides farinae 0; Class Dog Dander 0; Class Elm 0; Class Maple Box Elder 0; Class Mountain Cedar 0; Class Mouse Urine Protein 0; Class Mugwort 0; Class Oak 0; Class Penicillium crysogenum 0; Class Rough Pigweed 0; Class Sheep Sorrel 0; Class Sycamore 0; Class Timothy Grass 0; Class Walnut Tree 0; Class White Ash 0; Class White Mulberry 0; D002 - IgE D farinae <0.10 kU/L; E001 - IgE Cat Dander <0.10 kU/L; E005 - IgE Dog Dander <0.10 kU/L; G006 - IgE Timothy Grass <0.10 kU/L; I006-IgE Cockroach, German <0.10 kU/L; M002 - IgE Cladosporium herbar <0.10 kU/L; M003 - IgE Aspergillus fumigat <0.10 kU/L; M006 - IgE Alternaria alternat <0.10 kU/L; T001 IgE Maple/Box Elder <0.10 kU/L; T006 - IgE Cedar, Mountain <0.10 kU/L; T007 - IgE Oak, White <0.10 kU/L; T008 IgE Elm, American <0.10 kU/L; T010 - IgE Walnut <0.10 kU/L; T011 - IgE Maple Leaf Sycamore <0.10 kU/L; T014 - IgE Cottonwood <0.10 kU/L; T015 - IgE Ash, White <0.10 kU/L; T070 - IgE White Mulberry <0.10 kU/L; W001 - IgE Ragweed, Short <0.10 kU/L; W006 - IgE Mugwort <0.10 kU/L; W014 IgE Pigweed, Common <0.10 kU/L; W018 IgE Sheep Sorrel <0.10 kU/L
== END 2025-03-24 09:04 | disposition home or self-care (01) ==
LOC: HO.LAB 09:03
PROVIDERS: Visit Provider Nurse Practitioner Family
DX: Z91.09 Other allergy status, other than to drugs and biological substances (principal)
CPT/HCPCS: 36415; 82785; 85025; 86003

== ENCOUNTER 2025-05-30 12:59 | Outpatient (REF) | payer OTHER, SELFPAY ==
--- NOTE | 2025-05-30 13:11 | PFT_ITS ---
Flows: FEV1: 82 % of predicted at 2.92 L FVC: 82 % of predicted at 3.34 L FEV1/FVC: 87 % Bronchodilator response: Absent Volumes: Total lung capacity: 84 % of predicted at 4.44 L Residual volume: 82 % of predicted at 0.94 L Slow vital capacity: 87 % of predicted at 3.50 L Expiratory reserve volume: 39 % of predicted at 0.53 L Diffusion capacity: Normal Impression: No obstructive or restrictive ventilatory defect. No bronchodilator response. Decreased expiratory reserve volume suggests extrathoracic restriction likely secondary to abdominal obesity. MTDD
--- OUTSIDE RECORDS SUMMARY | 2025-05-30 13:21 | XMS_ITS | Encounter Summary ---
Author Organization [facility] Address [address] [place] [address] Phone Care Team Providers Care Car Worker Helper Name Role Phone Provider, Phillip SANCHES Primary Care Provider [phone] Encounter Details Date Type Department Care Team (Late st Contact Info) Description 11/27/2009 Documentation [facility] [place] Family Medicine [address] [place] [address] Family Medicine, Physician [address] [place] [phone] Social History Tobacco Use Types Packs/Day Years [...] on filedocumented in this encounter Care Teams Car Worker Helper Relationship Specialty Start Date End Date Provider, MD Phillip [address] [place] [phone] PCP - General Pediatrics 01/09/25 01/22/25 documented as of this encounter
--- OUTSIDE RECORDS SUMMARY | 2025-05-30 13:21 | XMS_ITS | Encounter Summary ---
Author Organization [facility] Address [address] [place] [address] Phone Care Team Providers Care Auto Seat Cover Installer Name Role Phone Provider, Phillip SANCHES Primary Care Provider [phone] Encounter Details Date Type Department Care Team (Late st Contact Info) Description 01/25/2013 [place] [facility] [place] [address] [place] [address] Family Medicine, Physician [address] [place], [place] [address] Social History Tobacco Use Types Packs/Day Years [...] on filedocumented in this encounter Care Teams Auto Seat Cover Installer Relationship Specialty Start Date End Date Provider, MD Phillip [address] [place] [phone] PCP - General Pediatrics 01/09/25 01/22/25 documented as of this encounter
--- OUTSIDE RECORDS SUMMARY | 2025-05-30 13:21 | XMS_ITS | Encounter Summary ---
Author Organization [facility] Address [address] [place] [address] Phone Care Team Providers Care Promotions Executive Producer Name Role Phone Provider, Phillip SANCHES Primary Care Provider [phone] Encounter Details Date Type Department Care Team (Late st Contact Info) Description 02/23/2017 Conversion Encounter [facility] [place] [address] [place] [address] Social History Tobacco Use Types Packs/Day Years [...] on filedocumented in this encounter Care Teams Promotions Executive Producer Relationship Specialty Start Date End Date Provider, MD Phillip [address] [place] [phone] PCP - General Pediatrics 01/09/25 01/22/25 documented as of this encounter
--- OUTSIDE RECORDS SUMMARY | 2025-05-30 13:21 | XMS_ITS | Clinical Summary ---
Author Organization [facility] Address [address] [place] [address] Phone Care Team Providers Care Program Director/Music Director Name Role Phone Unavailable Primary Care Provider Unavailabl e Allergies No known active allergies Medications Ventolin HFA 108 (90 Base) MCG/ACT inhaler INHALE 1 PUFF 4 TIMES A DAY 12/20/2024 Active Active Problems Problem Noted Date Diagnosed [...] years of age. 03/2020: patient says new [facility] told her she does not [...] Encounters Date Type Department Care Team Description 04/01/2025 Refill [facility] - [address] [address] Esther Carpenter, AMY Vitamin D deficiency from Last 3 Months Immunizations Immunization Administration Dates Next Due DTaP / Hep B / IPV 05/26/2004,03/30/2004 DTaP 5 12/05/2007,05/31/2005,01/27/2004 H1N1 06/16/2009 HPV Vaccine 9 Valent 03/21/2016,03/12/2015 Hep A, ped/adol 02/17/2014,02/16/2011 Hep B, ped/adol 2003 Hib (HbOC) 03/01/2005, 4,03/30/2004,01/26 IPV 12/05/2007,01/27/2004 Influenza, injectable, quadr ivalent, preservative free 05/26/2020,08/02/2018,04/11/2017,03/21,03/12/2015 Influenza, injectable, trivalent 07/25/2006,06/09 MMR 12/05/2007,2004 Meningococcal Conj (Menactra) MCV4P 05/26/2020,0 03/12/2015 PPD Test 10/18/2023 Pneumococcal Conjugate 03/01/2005,2003,03/30/2004,01/26 Tdap 03/12/2015 Varicella 12/05/2007,2004 Family History Medical History Relation Name Comments ADD / ADHD Brother 1 Easton Tim No Known Problems Brother 2 Andrew Dumont Diabetes Father Reuben Dumont ADD / ADHD Mother Zara St Asthma Mother Zara St Depression Mother Zara St Hypertension Mother Zara St Relation Name Status Comments Brother 1 Easton Dumont Alive Brother 2 Andrew Dumont Alive Father Reuben Dumont Alive Maternal Grandfather Materna l grandfather: Diabetes mellitus Maternal Grandmother Materna l aunt: Diabetes mellitus, Asthma Mother Zara St Alive Other Family history of Deafness, [...] In the last 12 months, did y yvonne or your family ever eat less than [...] Additional history exists COVID-19 Vaccine (1 - 2024-2 6 season) 2025 DTaP,Tdap,and Td Vaccines (7 - [...] Completed 05/26/2020, 015 Procedures * Due to [employer] law, this organization might not be sharing sensitive test results. Procedure Name Priority Date/Time Associated Diagnosis Comments CHLAMYDIA AND GONORRHEA, AMPLIFIED Routine 01/01/2025 4:21 PM EDT Encounter for screening examination for sexually transmitted disease from Last 3 Months or Most Recently Relevant to Health Maintenance Results * Due to [employer] law, this organization might not be sharing sensitive test results. * Chlamydia and Gonorrhoea, Amplified (Urine) (01/01/2025 4:21 PM EDT) C trach LILLIAN Negative Negative [facility] N gonorrhoeae LILLIAN Negative Negative [facility] Urine (Urine, Random (not clean void)) 01/01/2025 4:21 PM EDT 01/01/2025 Comment:UR Narrative [facility] - 01/02/2025 5:05 PM EDT Performed at: 01 - [facility] [address], [address], [place], [place] [id number] Attache: Preston Enamorado MD, Phone: [phone] us Esther Carpenter NP LAB MICROBIOLOGY - GENERAL ORD ERABLES Final Result [facility] [address] [place] [address] from Last 3 Months or Most Recently Relevant to Health Maintenance
[2025-05-30 13:54] VITALS: PULSE 77
== END 2025-05-30 13:00 | disposition home or self-care (01) ==
LOC: HO.RESP 12:59
PROVIDERS: Visit Provider Nurse Practitioner Family
DX: R06.00 Dyspnea, unspecified (principal); R05.9 Cough, unspecified
CPT/HCPCS: 94060; 94640; 94727; 94729

== ENCOUNTER → 2025-05-30 13:11 | Outpatient (BNV) | payer OTHER, SELFPAY | PROVIDERS: Visit Provider Internal Medicine Pulmonary Disease | DX: R06.00 Dyspnea, unspecified (principal) | CPT/HCPCS: 94060; 94727; 94729 ==

== ENCOUNTER 2025-06-10 18:27 | Emergency (ER) | payer OTHER, SELFPAY ==
--- NOTE | ~2025-06-10 | XR_ITS ---
CLINICAL HISTORY: chest pain cough 2 view chest x-ray Comparison: CR - XR CHEST 2V - 01/18/25 13:09 EDT Findings: No consolidation or effusion. Normal size heart. No acute fracture. 2 view chest x-ray Comparison: 01/18/2025 01:09 PM EDT: CR: XR CHEST 2V IMPRESSION: 1. No acute findings. This document has been electronically signed by: Debbie Starks MD on 06/10/2025 19:36:50
--- NOTE | 2025-06-10 18:28 | ECG_ITS ---
Test Reason : CP Blood Pressure : */* mmHG Vent. Rate : 88 BPM Atrial Rate : 88 BPM P-R Int : 98 ms QRS Dur : 78 ms QT Int : 320 ms P-R-T Axes : 47 60 28 degrees QTcB Int : 387 ms Sinus rhythm with short DE Otherwise normal ECG When compared with ECG of 02-Oct-2023 14:11, No significant change was found Referred By: Generic ED Physician Electronically Signed By: SUMMER GONZALEZ
[2025-06-10 18:43] VITALS: BP 125/70; PULSE 86; RESP 20; TEMP 36.5; O2SAT 97; BMI 29.9
--- NOTE | 2025-06-10 18:47 | ED.GENADULT ---
HPI - General Adult General Chief complaint: Chest Pain Stated complaint: chest pain Time Seen by Provider: 06/10/25 20:37 Source: patient Limitations: no limitations History of Present Illness ED Provider: Josefina Gonzalez PA-C HPI narrative: 19-year-old female presents with chest pain x2 weeks. Patient states she has been having intermittent discomfort that radiates to the left arm at times. Associated chest tightness,? twitching of her muscles including her eye at times?. Patient states she often wakes in the middle of the night hyperventilating feeling as if she can not catch her breath. The patient does state she has panic attacks. Concurrent cough and cold symptoms with the wheezing. Patient states she was assessed by pulmonology, she has pending results of her pulmonary function testing, they suspect she may have asthma. The patient does not use tobacco. Denies fever. Related Data Previous Rx's ?Medication ?Instructions ?Recorded amoxicillin 875 mg-potassium 1 tab PO Q12H #20 tabs 03/21/25 clavulanate 125 mg tablet prednisone 10 mg tablet 10 mg PO DIRECTED #15 tabs 03/21/25 ketorolac 10 mg tablet 10 mg PO Q6H PRN pain #20 tabs 06/10/25 Allergies Allergy/AdvReac Type Severity Reaction Status Date / Time No Known Allergies (No Known Allergy Verified 06/10/25 18:47 Allergies*) Review of Systems Review of Systems: Yes all other systems are reviewed and are negative Constitutional: Constitutional: Denies fatigue and Denies fever(s) Cardiovascular: Cardiovascular: Reports chest pain and Reports dyspnea Respiratory: Respiratory: Reports cough, Reports dyspnea and Reports wheezing Psychiatric: Psychiatric: Reports anxiety Endocrine: Endocrine: Denies fatigue Allergic/Immunologic: Allergic/Immunologic: Reports wheezing PMF Past Medical History Attestation statement: The following information was validated with the patient. Medical History No known health problems Social History Social History Patient Tobacco Use Status: Never used Tobacco Advance Directives: No Advance Directives Information Provided: No Do you have a plan to hurt others: No Plan Physical Exam ED Vital Signs: Vital Signs - 24 hr 06/10/25 18:43 06/10/25 21:47 Temperature 97.7 F 97.7 F Pulse Rate 86 86 Respiratory Rate 20 20 Blood Pressure 125/70 125/70 Pulse Oximetry 97 97 Oxygen Delivery Method Room Air Room Air BMI result Body Mass Index 29.9 Const Other: Alert well-appearing Orientation/consciousness: patient oriented x3 Resp Other: Lungs clear to auscultation no wheezing Cardio Other: Normal peripheral perfusion Skin Other: Warm dry no rash Neuro General: patient oriented x3, gait normal, no focal motor deficits and CN's II-XI intact bilaterally Psych Other: Cooperative Course Course Course Narrative: This is a Rapid Medical Examination (RME) performed by Billy Huertas PA-C in triage. Full HPI, ROS, assessment and treatment plan per primary provider in the Main ED. Hx: 19 yo F here for eval of L sided chest pain rad down L arm x2 weeks and cough x6 months. following w/ pulmonology - no known diagnoses. plan: labs, ekg, cxr Medical Decision Making Medical Decision Making MDM Narrative: 19-year-old female presents with chest pain x2 weeks. Patient states she has been having intermittent discomfort that radiates to the left arm at times. Associated chest tightness,? twitching of her muscles including her eye at times?. Patient states she often wakes in the middle of the night hyperventilating feeling as if she can not catch her breath. The patient does state she has panic attacks. Concurrent cough and cold symptoms with the wheezing. Patient states she was assessed by pulmonology, she has pending results of her pulmonary function testing, they suspect she may have asthma. The patient does not use tobacco. Denies fever. Problem: Underlying anxiety History: Per patient I have considered the following differential diagnoses: New onset asthma, viral syndrome, pneumonia, bronchitis, panic attack, ACS, PE Plan: Patient here with numerous symptoms that have been ongoing for 2 weeks. In regard to the chest pain, this is consistent with chest wall pain, she has no risk factors for coronary artery disease, her heart score is 0. Screening labs including cardiac enzymes and EKG obtained. We also obtain a chest x-ray, there was no evidence of pneumonia. Thought about PE, she complains of inability to catch her breath, shortness of breath, however she is PERC negative. No indication for dimer. I am sending the patient with outpatient resources for counseling and therapy, clearly her anxiety is poorly controlled. 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 She is not wheezing at this time, this is not an active asthma exacerbation. We will send with home care instructions. I have independently reviewed the following tests: Labs: No leukocytosis, not anemic, no electrolyte abnormality, troponin less than 2.7, not EKG: Sinus rhythm rate 88, no ischemic changes no ectopy QTC 387 Chest x-ray:Findings: No consolidation or effusion. Normal size heart. No acute fracture. 2 view chest x-ray Comparison: 01/18/2025 01:09 PM EDT: CR: XR CHEST 2V IMPRESSION: 1. No acute findings. Differential Diagnosis Differential Diagnoses: The differential diagnosis associated with the presentation includes See [facility] Admission/Observation Consideration of admission/observation: Escalation of care including admission/observation considered Not applicable Lab Data [facility] Lab Attestation statement: I reviewed the patient's lab results. 06/10/25 19:12 06/10/25 19:12 Labs: Lab Results 06/10/25 Range/Units 19:12 WBC 7.9 (4.8-10.8) X10*3/uL RBC 4.87 (4.20-5.50) X10*6/uL Hgb 13.7 (12.0-16.0) g/dl Hct 41.1 (37.0-47.0) % MCV 84.4 (80.0-98.0) fL MCH 28.1 (27.0-33.0) pg MCHC 33.3 (31.0-35.0) g/dl RDW 12.7 (11.0-16.0) % Plt Count 232 (160-400) X10*3/uL MPV 10.8 (9.4-12.3) fL Immature Gran % (Auto) 0.3 (0.0-0.4) % Neut % (Auto) 62.8 (45-73) % Lymph % (Auto) 29.8 (20-40) % Clarke % (Auto) 5.7 (2-11) % Eos % (Auto) 1.1 (0-4) % Baso % (Auto) 0.3 (0-2) % Lymph # (Auto) 2.4 (1.2-4.9) X10*3/uL Clarke # (Auto) 0.5 (0.1-1.2) X10*3/uL Eos # (Auto) 0.1 (0.0-0.4) X10*3/uL Baso # (Auto) 0.0 (0.0-0.2) X10*3/uL Abs Immat Gran (auto) 0.02 (0.00-0.03) X10*3/uL Absolute Neuts (auto) 5.0 (2.0-8.3) x10*3/uL Absolute Nucleated RBC 0.000 (0.0-0.012) X10*3/uL Nucleated RBC % (auto) 0.0 (0.0-0.2) /100WBC Sodium 141 (135-145) mmol/L Potassium 3.5 (3.3-5.1) mmol/L Chloride 106 (96-108) mmol/L Carbon Dioxide 25 (22-29) mmol/L Anion Gap 14 (12-20) BUN 14 (9-16) mg/dL Creatinine 0.73 (0.5-1.4) mg/dL Estim Creat Clear Calc 119.4 Estimated GFR > 60 Random Glucose 103 (60-115) mg/dL Calcium 10.0 (8.4-10.2) mg/dL Magnesium 2.1 (1.6-2.6) mg/dL Total Bilirubin 0.3 (0.0-1.0) mg/dL AST 18 (5-31) U/L ALT 14 (0-31) U/L Alkaline Phosphatase 76 (39-117) U/L Troponin I High Sens < 2.7 (<3.5-17.0) ng/L Total Protein 8.0 (6.5-8.0) g/dL Albumin 5.0 (3.5-5.0) g/dL Lipase 25 (8-78) U/L Beta HCG, Quant < 2 mIU/mL Independent Interpretation I performed an independent interpretation of an: EKG Radiology Impression Discussion of test interpretation with radiology: I have reviewed the radiologist's reading. Discharge Plan Discharge Clinical Impression: Chest wall pain, Anxiety Patient Disposition: Home, Self-Care Instructions: Noncardiac Chest Pain (ED), Anxiety (ED), Chest Wall Pain (ED), Panic Attack (ED) Additional Instructions: All of your screening labs including a cardiac enzymes were normal. There were no changes on the EKG that were concerning. The chest x-ray is clear. I do believe your symptoms are secondary to a virus that you may have been exposed to, this can cause inflammation between the cartilage is of your ribs. Use the ketorolac as directed take it with food. In regard to your anxiety, it sounds as if you have been having panic attacks. I have provided you with outpatient resources for counseling and therapy. Keep your pending follow up appointment with your solder making supervisor. If you develop wheezing, use your inhaler as directed you can use it every 4-6 hours. Prescriptions: New ketorolac 10 mg tablet 10 mg PO Q6H PRN (Reason: pain) Qty: 20 0RF Rx Instructions: maximum total duration of 5 days from all oral, intranasal, or parenteral formulations, the patient received an intramuscular dose of Toradol here in the emergency room No Action amoxicillin-pot clavulanate 875-125 mg tablet 1 tab PO Q12H Qty: 20 0RF prednisone 10 mg tablet 10 mg PO DIRECTED Qty: 15 0RF Rx Instructions: 20 mg x 5 days followed by 10 mg x 5 days Stand Alone Forms: Work/School Release Interventions: ED Discharge Assessment Last Done: 06/10/25 21:47 Discharge Date/Time: 06/10/25 21:47 Print Language: Swedish
[2025-06-10 19:18] LABS: MANUAL DIFF FLAG NO
[2025-06-10 19:25] LABS: Hematocrit 41.1 % (37.0-47.0); Hemoglobin 13.7 g/dl (12.0-16.0); Imm Gran Abs Auto 0.02 X10*3/uL (0.00-0.03); Imm Gran Pct Auto 0.3 % (0.0-0.4); Lymphocytes Absolute Auto 2.4 X10*3/uL (1.2-4.9); Mean Corpuscular HGB Conc 33.3 g/dl (31.0-35.0); Mean Corpuscular Hemoglobin 28.1 pg (27.0-33.0); Mean Corpuscular Volume 84.4 fL (80.0-98.0); NRBC Abs Auto 0.000 X10*3/uL (0.0-0.012); NRBC Pct Auto 0.0 /100WBC (0.0-0.2); Platelet Count 232 X10*3/uL (160-400); Red Blood Count 4.87 X10*6/uL (4.20-5.50); White Blood Count 7.9 X10*3/uL (4.8-10.8)
[2025-06-10 19:33] LABS: Alanine Aminotransferase 14 U/L (0-31); Albumin Level 5.0 g/dL (3.5-5.0); Alkaline Phosphatase 76 U/L (39-117); Anion Gap 14 (12-20); Aspartate Amino Transferase 18 U/L (5-31); Blood Urea Nitrogen 14 mg/dL (9-16); Calcium 10.0 mg/dL (8.4-10.2); Carbon Dioxide 25 mmol/L (22-29); Chloride 106 mmol/L (96-108); Creatinine Clr Calc Pharmacy 119.4; Estimated Glomerular Filt Rate > 60; Lipase 25 U/L (8-78); Magnesium 2.1 mg/dL (1.6-2.6); Potassium 3.5 mmol/L (3.3-5.1); Sodium 141 mmol/L (135-145); Total Protein 8.0 g/dL (6.5-8.0)
[2025-06-10 19:40] LABS: Troponin-I High Sensitivity < 2.7 ng/L (<3.5-17.0)
--- OUTSIDE RECORDS SUMMARY | 2025-06-10 21:32 | XMS_ITS | Encounter Summary ---
Author Organization [facility] Address [address] [place] [address] Phone Care Team Providers Care Park Warden Name Role Phone Provider, Phillip SANCHES Primary Care Provider Encounter Details Date Type Department Care Team (Late st Contact Info) Description 11/27/2009 Documentation [facility] [place] [address] [place] [address] Family Medicine, Physician [address] [id number] Social History Tobacco Use Types Packs/Day Years [...] on filedocumented in this encounter Care Teams Park Warden Relationship Specialty Start Date End Date Provider, MD Phillip [address] [place] [phone] PCP - General Pediatrics 01/09/25 01/22/25 documented as of this encounter
--- OUTSIDE RECORDS SUMMARY | 2025-06-10 21:32 | XMS_ITS | Clinical Summary ---
Author Organization [facility] Address [address] [place] [address] Phone Care Team Providers Care Neck Cutter Name Role Phone Unavailable Primary Care Provider [...] Type Department Care Team Description 04/01/2025 Refill [facility] - [address] [address] Esther Carpenter, AMY Vitamin D deficiency from [...] Relation Name Status Comments Brother 1 Easton uDmont Alive Brother 2 Andrew Dumont Alive Father [...] Completed 05/26/2020, 015 Procedures * Due to [place] [employer] [place] law, this organization might not be sharing sensitive test results. Procedure Name Priority Date/Time Associated Diagnosis Comments CHLAMYDIA AND GONORRHEA, AMPLIFIED Routine 01/01/2025 4:21 PM EDT Encounter for screening examination for sexually transmitted disease from Last 3 Months or Most Recently Relevant to Health Maintenance Results * Due to [place] [employer] [place] law, this organization might not be sharing sensitive test results. * Chlamydia and Gonorrhoea, Amplified (Urine) (01/01/2025 4:21 PM EDT) C trach LILLIAN Negative Negative [facility] N gonorrhoeae LILLIAN Negative Negative [facility] Urine (Urine, Random (not clean void)) 01/01/2025 4:21 PM EDT 01/01/2025 Comment:UR Narrative [facility] - 01/02/2025 5:05 PM EDT Performed at: 01 - [facility] [address], [address], [place], [place] [id number] [employer] Supervisor: Preston Enamorado MD, Phone: [phone] us Esther Carpenter NP LAB MICROBIOLOGY - GENERAL ORD ERABLES Final Result [facility] [address] [place] [address] from Last 3 Months or Most Recently Relevant to Health Maintenance
--- OUTSIDE RECORDS SUMMARY | 2025-06-10 21:32 | XMS_ITS | Encounter Summary ---
Author Organization [facility] Address [address] [place] [phone] Phone Care Team Providers Care Slasher Tender Helper Name Role Phone Provider, Phillip SANCHES Primary Care Provider [phone] Encounter Details Date Type Department Care Team (Late st Contact Info) Description 01/25/2013 Documentation [facility] [place] Family Medicine [address] [place] [address] Family Medicine, Physician [address], [place] [address] Social History Tobacco Use Types Packs/Day Years [...] on filedocumented in this encounter Care Teams Slasher Tender Helper Relationship Specialty Start Date End Date Provider, MD Phillip [address] [place] [phone] PCP - General Pediatrics 01/09/25 01/22/25 documented as of this encounter
--- OUTSIDE RECORDS SUMMARY | 2025-06-10 21:32 | XMS_ITS | Encounter Summary ---
Author Organization [facility] Address [address] [place] [address] Phone Care Team Providers Care Biologist Aide Name Role Phone Provider, Phillip SANCHES Primary Care Provider Encounter Details Date Type Department Care Team (Late st Contact Info) Description 02/23/2017 Conversion Encounter [facility] [place] [address] [place] [address] Social History Tobacco Use Types Packs/Day Years [...] on filedocumented in this encounter Care Teams Biologist Aide Relationship Specialty Start Date End Date Provider, MD Phillip [address] [place] [phone] PCP - General Pediatrics 01/09/25 01/22/25 documented as of this encounter
[2025-06-10 21:47] VITALS: BP 125/70; PULSE 86; RESP 20; TEMP 36.5; O2SAT 97
== END 2025-06-10 21:47 | disposition home or self-care (01) ==
PROVIDERS: Physician Assistant Medical; Emergency Provider Emergency Medicine
DX: R07.89 Other chest pain (principal); F41.9 Anxiety disorder, unspecified; R05.9 Cough, unspecified
CPT/HCPCS: 36415; 71046; 80053; 83690; 83735; 84484; 84702; 85025; 93005; 99283

== ENCOUNTER → 2025-06-10 18:28 | Outpatient (BNV) | payer OTHER, SELFPAY | PROVIDERS: Emergency Provider Emergency Medicine; Visit Provider Internal Medicine | DX: R07.9 Chest pain, unspecified (principal) | CPT/HCPCS: 93010 ==

== ENCOUNTER → 2025-06-10 18:45 | Outpatient (BNV) | payer OTHER, SELFPAY | PROVIDERS: Visit Provider Student in an Organized Health Care Education/Training Program | DX: R07.9 Chest pain, unspecified (principal); R05.9 Cough, unspecified | CPT/HCPCS: 71046 ==

== ENCOUNTER 2025-06-20 14:56 | Outpatient (AMB) | payer OTHER, SELFPAY ==
[2025-06-20 14:57] VITALS: BP 106/68; PULSE 79; O2SAT 99; BMI 30.7
--- NOTE | 2025-06-20 14:57 | A.OFFVIS_ITS ---
Vital Signs 06/20/25 14:57 Height 5 ft 3 in Weight 173 lb 6 oz BMI 30.7 BP 106/68 Blood Pressure Location Rt brachial Position Sitting Pulse 79 Pulse Source Pulse Oximeter Pulse Oximetry (%) 99 Oxygen Delivery Method Room Air Intake Visit Reasons: Cough Allergies No Known Allergies (No Known Allergies*) Allergy (Verified 06/20/25 15:00) HPI Comments Details: Renzo is a pleasant 19-year-old female, never smoker, with no significant past medical history. She was initially referred by PCP for persistent cough and question of asthma. At the last visit she reported bronchitic symptoms with green mucus production, chest tightness and dyspnea, prescribed 10-day courses of prednisone and an antibiotic; she completed the prednisone but discontinued the antibiotic after about 5 days due to adverse reaction. Her cough has improved in frequency, however continues to experience intermittent chest tightness and episodes of shortness of breath, which have caused panic attacks and disturbed her sleep. She wakes up at night from coughing but not from shortness of breath. She recently had an emergency room visit for chest pain with no significant findings. Her family history is notable for asthma in her mother, who experiences similar symptoms. Past workup includes a recent normal chest x-ray and negative allergy testing. The patient reports she has stopped smoking marijuana. Pulmonology History - History of intermittent chest tightness, dyspnea, and nocturnal cough. - Recent emergency room visit for chest pain. - Pulmonary function testing revealed a 14% improvement with albuterol, suggestive of asthma. - Recent chest x-ray was normal. - History of smoking, which she has recently quit. - Family history of asthma in her mother. [facility] Medical History No known health problems Social History Patient Tobacco Use Status: Never used Tobacco Review of Systems Narrative Const Denies chills, Denies excessive sweating, Denies fever(s), Denies headache(s) and Denies night sweats Eyes Denies dry eyes, Denies irritation and Denies itchy eyes ENT Reports Normal hearing present, Denies headache(s), Denies post nasal drip and Denies sore throat Card Denies chest pain, Denies chest pain at rest, Denies chest pain with activity, Denies claudication, Denies leg edema, Reports dyspnea on exertion, Denies orthopnea and Denies paroxysmal nocturnal dyspnea Resp Denies chest congestion, Reports cough, Denies hemoptysis, Denies pain on inspiration, Denies pain with cough, Reports dyspnea on exertion, Denies stridor and Reports wheezing Musc Denies myalgias Neuro Reports Normal hearing present and Denies headache(s) Endo Denies excessive sweating Latrell/Lymph Denies lymphadenopathy Aller/Immun Denies itchy eyes, Denies seasonal rhinorrhea and Reports wheezing Physical Exam Exam Exam: Vital Signs: Last Vital Signs Pulse 79 06/20/25 14:57 BP 106/68 06/20/25 14:57 Pulse Ox 99 06/20/25 14:57 Oxygen Delivery Method Room Air 06/20/25 14:57 BMI result Body Mass Index 30.7 Const General: cooperative, healthy appearing, comfortable, no acute distress, well developed and alert Orientation/consciousness: patient oriented x3 Limitations: no limitations HEENT Head: Yes normal to inspection, Yes normocephalic and Yes atraumatic Ears: hearing grossly normal bilaterally and external ears normal Eyes General: appearance normal, both eyes and all related structures Eyelids: Yes eyelids normal Sclerae: sclerae normal EOM: EOMs intact bilaterally Neck Neck: Yes normal visual inspection and Yes no lymphadenopathy Lymphatic: no lymphadenopathy noted Chest Chest palpation & inspection: normal inspection of the chest Resp Effort & Inspection: normal respiratory effort, able to speak in complete sentences, no audible wheezes, no stridor, not tachypneic, no tripod positioning and no use of accessory muscles Auscultation: no rhonchi, no wheezes and diminished lung sounds Cardio Jugular venous distension: no JVD Rate: regular rate Rhythm: regular rhythm Skin Other: warm, dry General skin exam: no rashes or lesions noted Neuro General: patient oriented x3 Cranial nerves: Yes Normal hearing present Cognition (Neuro): normal cognition Gait exam (Neuro): Normal gait present Extrem General: Yes normal to inspection, Yes capillary refill normal, Yes no clubbing, cyanosis or edema and Yes no pedal edema Psych Appearance: grossly normal and well kempt Speech and movement: Normal speech and movement present and Clear speech present Affect: normal affect Attitude: cooperative Thought process: Normal thought process present Thought content: Normal thought content present Insight: Good insight present (Psych) Judgement: Good judgement present (Psych) Assessment & Plan Assessment & Plan (1) Asthma: Code(s): J45.909 - Unspecified asthma, uncomplicated Category: Medical (2) Cough: Code(s): R05.9 - Cough, unspecified Category: Medical (3) Dyspnea: Code(s): R06.00 - Dyspnea, unspecified Category: Medical Plan Explained to the patient that PFT results, demonstrated a 14% improvement after using albuterol in the small to medium airways in addition to clinical symptoms, are suggestive of asthma. Acknowledged that anxiety had been considered, but her clinical picture justifies treating for asthma. Will prescribe a daily steroid inhaler and have instructed her on the proper technique for use, including inhaling slowly and holding her breath for 10 seconds. E the importance of rinsing her mouth after each use to prevent a yeast infection, a potential side effect of the medication. Advised her that this inhaler is a preventative medication and should be used daily, regardless of whether she is feeling symptoms. We discussed that she should contact my office if the inhaler is not covered by her insurance or is too expensive, as there are alternative options. We will follow up in 6-8 weeks to assess her response to the treatment, which will also help clarify the role of asthma versus anxiety in her symptoms. All questions were answered and patient is in agreement of plan. Patient was informed and verbally consented to the use of an ambient scribe for clinic note documentation during this visit. Medications: New fluticasone furoate 100 mcg/actuation (Arnuity Ellipta) 1 inh inhalation DAILY 30 ea 3RF Coding Level of Care Code Est Pt Level 4 (49221) Diagnoses Asthma J45.909 Cough R05.9 Dyspnea R06.00
--- OUTSIDE RECORDS SUMMARY | 2025-06-20 20:00 | XMS_ITS | Encounter Summary ---
Author Organization [facility] Address [address] [place] [address] Phone Care Team Providers Care Air Conditioning Engineer Name Role Phone Provider, Phillip SANCHES Primary Care Provider [phone] Encounter Details Date Type Department Care Team (Late st Contact Info) Description 01/25/2013 Documentation [facility] [place] Family Medicine [address] [place] [address] Family Medicine, Physician [address], [place] [phone] Social History Tobacco Use Types Packs/Day Years [...] on filedocumented in this encounter Care Teams Air Conditioning Engineer Relationship Specialty Start Date End Date Provider, MD Phillip [address] [place] [phone] PCP - General Pediatrics 01/09/25 01/22/25 documented as of this encounter
--- OUTSIDE RECORDS SUMMARY | 2025-06-20 20:00 | XMS_ITS | Encounter Summary ---
Author Organization [facility] Address [address] [place] [address] Phone Care Team Providers Care Contracting Specialist Name Role Phone Provider, Phillip SANCHES Primary Care Provider [phone] Encounter Details Date Type Department Care Team (Late st Contact Info) Description 02/23/2017 Conversion Encounter [facility] [place] [address] [place] [address] Social History Tobacco Use Types Packs/Day Years [...] on filedocumented in this encounter Care Teams Contracting Specialist Relationship Specialty Start Date End Date Provider, MD Phillip [address] [place] [phone] PCP - General Pediatrics 01/09/25 01/22/25 documented as of this encounter
--- OUTSIDE RECORDS SUMMARY | 2025-06-20 20:00 | XMS_ITS | Clinical Summary ---
Author Organization [facility] Address [address] [place] [address] Phone Care Team Providers Care Skiver Box Toe Name Role Phone Unavailable Primary Care Provider [...] Type Department Care Team Description 04/01/2025 Refill [facility] - [address] [address] Esther Carpenter, AMY Vitamin D deficiency from [...] Completed 05/26/2020, 015 Procedures * Due to [place] [employer] law, this organization might not be sharing sensitive test results. Procedure Name Priority Date/Time Associated Diagnosis Comments CHLAMYDIA AND GONORRHEA, AMPLIFIED Routine 01/01/2025 4:21 PM EDT Encounter for screening examination for sexually transmitted disease from Last 3 Months or Most Recently Relevant to Health Maintenance Results * Due to [place] [employer] law, this organization might not be sharing sensitive test results. * Chlamydia and Gonorrhoea, Amplified (Urine) (01/01/2025 4:21 PM EDT) C trach LILLIAN Negative Negative [facility] N gonorrhoeae LILLIAN Negative Negative [facility] Urine (Urine, Random (not clean void)) 01/01/2025 4:21 PM EDT 01/01/2025 Comment:UR Narrative [facility] - 01/02/2025 5:05 PM EDT Performed at: 01 - [facility] [address], [address], [place], [place] [id number] Bisque Ware Dipper: Preston Enamorado MD, Phone: [phone] us Esther Carpenter NP LAB MICROBIOLOGY - GENERAL ORD ERABLES Final Result [facility] [address] [place] [address] from Last 3 Months or Most Recently Relevant to Health Maintenance
--- OUTSIDE RECORDS SUMMARY | 2025-06-20 20:00 | XMS_ITS | Encounter Summary ---
Author Organization [facility] Address [address] [place] [phone] Phone Care Team Providers Care [employer] Name Role Phone Provider, Phillip SANCHES Primary Care Provider [phone] Encounter Details Date Type Department Care Team (Late st Contact Info) Description 11/27/2009 Documentation [facility] [address] [place] [address] Family Medicine, Physician [address] [place], [place] [phone] Social History Tobacco Use Types Packs/Day Years [...] on filedocumented in this encounter Care Teams [employer] Relationship Specialty Start Date End Date Provider, MD Phillip [address] [place] [id number] PCP - General Pediatrics 01/09/25 01/22/25 documented as of this encounter
== END 2025-06-20 15:20 | disposition home or self-care (01) ==
LOC: HO.HPSW 14:56
PROVIDERS: PCP Nurse Practitioner Pediatrics; Visit Provider Nurse Practitioner Family
DX: J45.909 Unspecified asthma, uncomplicated (principal); R05.9 Cough, unspecified; R06.00 Dyspnea, unspecified
CPT/HCPCS: 99214

== ENCOUNTER → 2025-06-20 14:56 | Outpatient (BNVA) | payer OTHER, SELFPAY | PROVIDERS: PCP Nurse Practitioner Pediatrics; Visit Provider Nurse Practitioner Family | DX: J45.909 Unspecified asthma, uncomplicated (principal); R05.9 Cough, unspecified; R06.00 Dyspnea, unspecified | CPT/HCPCS: 99212 ==